=== PATIENT | male | born 1990 | race Caucasian/White ===

== ENCOUNTER 2023-09-21 11:06 | Emergency (ER) | payer BC, SELFPAY ==
[2023-09-21 11:10] VITALS: BP 156/89
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
[2023-09-21] MEDS: PERCOCET 5/325 1 TABLET PO (12:17)
== END 2023-09-21 13:40 | disposition home or self-care (01) ==
LOC: EMR 11:06
PROVIDERS: EMERGENCY PHYSICIAN Emergency Medicine; FAMILY PHYSICIAN Family Medicine
DX: S82.392A Other fracture of lower end of left tibia, initial encounter for closed fracture (principal); V18.0XXA Pedal cycle driver injured in noncollision transport accident in nontraffic accident, initial encounter; Y93.55 Activity, bike riding; Z87.891 Personal history of nicotine dependence
CPT/HCPCS: 99283; 29515; 73590; 73610